=== PATIENT | female | born 1970 | race Caucasian/White ===

== ENCOUNTER 2016-10-08 06:24 | Emergency (ER) | payer OTHER ==
[~2016-10-08] VITALS: Ht 172.7 cm; Wt 124.5 kg
[2016-10-08 06:31] VITALS: BP 140/89; PULSE 86; RESP 16; O2SAT 98
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
[2016-10-08] MEDS ORDERED: Ondansetron 8 mg ODT Tablet PO ONE (06:55)
[2016-10-08] MEDS ORDERED: HYDROmorphone 1 mg/mL Inj IM ONE (06:55)
[2016-10-08] MEDS ORDERED: Ketorolac 15 mg/mL Inj IM ONE (08:20)
[2016-10-08] MEDS ORDERED: HYDR-4003 PO (09:47)
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
[2016-10-08 10:03] VITALS: BP 127/87; PULSE 83; RESP 16; O2SAT 94
== END 2016-10-08 10:04 | disposition home or self-care (01) ==
LOC: SED 06:24 → EDBD 06:24 → SED 10:04
DX: S16.1XXA Strain of muscle, fascia and tendon at neck level, initial encounter (principal); V44.5XXA Car driver injured in collision with heavy transport vehicle or bus in traffic accident, initial encounter; Y92.411 Interstate highway as the place of occurrence of the external cause; Y93.89 Activity, other specified; Y99.8 Other external cause status; M54.5 Low back pain; E11.9 Type 2 diabetes mellitus without complications; F17.200 Nicotine dependence, unspecified, uncomplicated; Z87.828 Personal history of other (healed) physical injury and trauma; Z88.1 Allergy status to other antibiotic agents; Z88.5 Allergy status to narcotic agent
CPT/HCPCS: 72125; 72131; 81002; 96372; 99284; J1170; J1885